=== PATIENT | male | born 1970 | race Caucasian/White ===

== ENCOUNTER 2019-06-15 07:20 | Day surgery (SDC) | payer OTHER, SELFPAY ==
[2019-05-19 14:52] VITALS: BMI 25.0
[2019-06-15 08:14] VITALS: BP 141/92; PULSE 70; RESP 16; TEMP 36.8; O2SAT 100; BMI 25.5
[2019-06-15] MEDS: Lactated Ringers 1,000 ML 100 ML IV ×2 (08:32→11:15)
[2019-06-15] MEDS: Cefazolin 2 GM in 0.9% Normal Saline 100 ML IV (10:05)
--- NOTE | 2019-06-15 10:37 | PCM.OPRPT ---
Report of Operation Date of Procedure: 06/15/19 Description of Surgical Findings:: Preoperative diagnosis; right carpal tunnel syndrome and cubital tunnel Postoperative diagnosis; same Procedure: 1. Right open carpal tunnel release 2. Right ulnar nerve decompression Anesthesia: Local with MAC Tourniquet time; 20 minutes 250 mm Hg Complications: None Indication for procedure; This is a 48-year-old male with long-standing symptoms consistent with carpal tunnel and cubital tunnel syndrome the patient did have electrodiagnostic evidence of this and has failed conservative treatment. Risks benefits and alternatives were reviewed including risks of bleeding infection nerve artery tissue damage need for further surgery and continued pain and symptoms, hypersensitivity to scar and Pillar pain. Procedure; The patient was met in the preoperative holding area the operative extremity was identified by both patient and physician and was marked the patient was met by anesthesia and brought back to the operating room and transferred to the operating table in the supine position. Aanesthesia was started. A well-padded tourniquet was placed on the operative upper extremity. The patient was prepped and draped in the usual sterile fashion. A timeout was called to ensure the proper patient procedure and extremity were being contemplated. An Esmarch was used to exsanguinate the extremity. The tourniquet was inflated to 250 mmHg. First we turned our attention to the elbow made a curvilinear skin incision over the path of the ulnar nerve dissection was carried down as full-thickness flaps electrocautery was used until the fascia over the ulnar nerve was reached the nerve was then identified proximally and Vesseloops were placed around it and careful dissection to free it from the surrounding soft tissue was performed until its distal extent splitting of the 2 heads of the FCU nerve was mobilized and proximally up to the medial intermuscular septum and there was no further constrictions proximally. The release was carried out on the dorsal side of the tunnel and when the elbow was brought through range of motion there was no subluxation appreciated the wound was thoroughly irrigated and closed with 3-0 Vicryl subcutaneous stitches and 3-0 Monocryl running stitch. Steri-Strips and Xeroform Second procedure A midline incision was made with a 15 blade scalpel between the thenar and hypothenar eminence. This was carried down through the skin and subcutaneous tissue. Abram retractors were then used, a deep blade scalpel was used to make a deep incision in the palmar aponeurosis. The abram retractors were then placed deep to this and the transverse carpal ligament was identified a perforation was made with a scalpel and a Littler scissors were used to complete the release of the transverse carpal ligament distally under direct visualization with the tips facing ulnarly until the perivascular fat was reached. Then turning our attention proximally using a tension slide technique the proximal extent of the transverse carpal ligament was released . There was noted to be [hourglass configuration to the median nerve and hypertrophy of the transverse carpal ligament without other findings]. The wound was thoroughly irrigated and was closed with 4-0 prolene vertical mattress stitches. Dressing was applied in the form of xeroform 4 x 4, web roll and an juana wrap. Tourniquet was let down there is no intraoperative complications patient tolerated the procedure well and was transferred to the PACU. All counts were correct.
--- NOTE | 2019-06-15 10:47 | DCINST_ITS ---
Discharge Diet: No Restrictions Call your doctor if you observe: Fever of 101 or Higher, Shortness of breath, Chest pain Additional Instructions: Ice and elevate operative extremity next 72 hours. encourage finger wrist and elbow range of motion. Keep dressing on clean and dry for 48 hours then may remove and allow warm soapy water to rinse over incision but do not submerge until sutures are out. Then apply bandaid over incision and change daily. encourage finger range of motion. Not lift more than 2 pound. Allergies/Adverse Reactions: Allergies Penicillins Allergy (Verified 06/15/19 08:12) Unknown Medications to take at Discharge Hydrocodone Bitart/Apap 5-325 [Speedwell 5MG-325MG] 1 - 2 tab PO Q4H PRN PRN 5 Days #40 tab 06/15/19 The following prescriptions were given: Hydrocodone Bitart/Apap 5-325 [Speedwell 5MG-325MG] 1 - 2 tab PO Q4H PRN PRN 5 Days #40 tab PRN Reason: Pain Transmission Status: Received by [facility] Primary Care Physician: Care Physician,No Primary [Primary Care Provider] - Test Results: Test results from this visit will be discussed in further detail at your follow- up appointment, if applicable.
--- NOTE | 2019-06-15 10:49 | HP.PCM_ITS ---
History and Physical Date of Admission: 06/15/19 Intake Vital Signs 05/19/19 Height 5 ft 6 in 05/19/19 Weight: 155 lb 05/19/19 Body Mass Index (BMI) 25.0 Intake Visit Reasons: Bilat Wrist Accompanied by: self Is patient in pain?: Yes Pain scale (1-10): 8 Allergies Penicillins Allergy (Verified 05/19/19 14:53) Unknown Medications NK 05/19/19 [History Confirmed 05/19/19] HPI Bilat Wrist: Chief Complaint: Bilateral upper extremity numbness tingling right worse than left Details: Parts of this documentation were recorded by a scribe, this documentation accurately reflects the service provided and the decisions made by me, Jonathon Pizarro, 05/19/19 0759. MARILYN RUELAS is a 48 year old M new patient here today for BL wrists. Referral from [employer] for positive EMG findings. Has been working at [employer] for about 20 years. Patient states he has been working 7 days a week for 2 years and he started going to [employer] about in June and they put him on 40hr working restriction. Has done PT for his BL arms. States his right arm has numbness and tingling from all his fingers to the elbow. Patient states he has a soreness over his left arm from his hand to his elbow. States he has a tingling sensation then he starts feeling his muscle tense up. States he's had this pain of May 2018. Has tried night splinting fo BL wrists for about 3 months but no longer wears them. Denies any injections of the wrists or elbows. ROS Const Reports system reviewed and no additional complaints, except as docu Eyes Reports system reviewed and no additional complaints, except as docu ENT Reports system reviewed and no additional complaints, except as docu Card Reports system reviewed and no additional complaints, except as docu Resp Reports system reviewed and no additional complaints, except as docu GI Reports system reviewed and no additional complaints, except as docu Reports system reviewed and no additional complaints, except as docu Musc Reports system reviewed and no additional complaints, except as docu, Reports as per HPI Skin/Breast Reports system reviewed and no additional complaints, except as docu Neuro Yes system reviewed and no additional complaints, except as docu Psych Reports system reviewed and no additional complaints, except as docu Endo Reports system reviewed and no additional complaints, except as docu Valentin/Lymph Reports system reviewed and no additional complaints, except as docu Aller/Immun Reports system reviewed and no additional complaints, except as docu Ortho Exam Right Wrist/Hand Right Wrist: Yes Durken's Test, Tinel's and Phalen's WRIST: no atrophy noted. Left Wrist/Hand Left Wrist: No Durken's Test, No Tinel's or No Phalen's Supplemental Info 05/11/2019 :EMG showed bilateral Upper Extremity Moderate Carpal Tunl. and Cubital Tunl. Assessment & Plan Problems 1. Carpal tunnel syndrome, bilateral upper limbs G56.03 2. Cubital tunnel syndrome, bilateral G56.23 Plan Reviewed EMG results. Since patient has trialed bracing, PT and OT NSAID and has had a positive EMG study of moderate severity. He is educated that the next steps for this would be a CTR and an open ulnar nerve decompression and possible ulnar nerve transposition. Patient educated that we can preform one side then will preform surgery of the other . Patient educated on the recovery period. Reviewed the pre-operative plans with the patient. Risks and benefits of the procedure were fully explained, including but not limited to infection, neurovascular injury, continued pain, arthritis, stiffness, need for further surgery, re-injury, DVT, PE, general risks of anesthesia, and loss of limb or life. The patient understands all the risks and does wish to proceed with written consent. Since patient is WC we will request C-9 for surgery. Follow up 2 weeks post op or sooner if pain, swelling, numbness or associated symptoms, or concerns develop. All questions answered. Patient in agreement of plan. Coding Level of Care Code Off vis,new,level 3 Diagnoses Carpal tunnel syndrome, bilateral upper limbs G56.03 Cubital tunnel syndrome, bilateral G56.23 I have re-examined the patient. There are no clinical changes since date of exam
[2019-06-15 11:18] VITALS: BP 126/88; BP 141/92; PULSE 77; RESP 18; TEMP 36.2; O2SAT 96
[2019-06-15 11:30] VITALS: BP 119/80; BP 141/92; PULSE 57; RESP 16; O2SAT 98
[2019-06-15 11:45] VITALS: BP 118/73; BP 141/92; PULSE 55; RESP 18; O2SAT 100
[2019-06-15 11:54] VITALS: BP 121/84; BP 141/92; PULSE 57; RESP 18; TEMP 36.4; O2SAT 100
[2019-06-15 12:05] VITALS: BP 141/92
== END 2019-06-15 13:07 | disposition home or self-care (01) ==
LOC: SDC 07:22 → AC 07:23
PROVIDERS: Referring Provider Orthopaedic Surgery; Visit Provider Orthopaedic Surgery
PROC: (CPT 64721; principal; 2019-06-15 08:45)
DX: G56.03 Carpal tunnel syndrome, bilateral upper limbs (principal); G56.23 Lesion of ulnar nerve, bilateral upper limbs; F17.200 Nicotine dependence, unspecified, uncomplicated; Z88.0 Allergy status to penicillin
CPT/HCPCS: 01810; 64718; 64721; J7120

== ENCOUNTER 2019-07-20 07:59 | Day surgery (SDC) | payer OTHER, SELFPAY ==
[2019-06-30 09:43] VITALS: BMI 25.5
--- NOTE | 2019-07-20 07:23 | HP.PCM_ITS ---
History and Physical Date of Admission: 07/20/19 Intake Vital Signs 06/30/19 Body Mass Index (BMI) 25.5 Intake Visit Reasons: R. ELBOW/WRIST Allergies Penicillins Allergy (Verified 06/15/19 08:12) Unknown [facility] Social History (Updated 06/30/19 @ 12:48 by Jonathon Pizarro DO) Smoking Status: Current every day smoker HPI R. ELBOW/WRIST: Chief Complaint: 1. po right upper extremity 2. numbness left upper extremity Details: Parts of this documentation were recorded by a scribe, this documentation accurately reflects the service provided and the decisions made by me, Jonathon Pizarro DO 06/30/19 0749. MARILYN RUELAS is a 48 year old M here today for 2 weeks post Right open carpal tunnel release and Right ulnar nerve decompression. Patient states he is still having some remaining numbness and tingling but it is much improved then pre- operatively . Patient is off work for the right and wishes to disscuss having his left CTR and ulnar nerve completed while he is off. he has continued symptoms and did have an EMG showing moderate carpal tunnel and cubital tunnel on the left. Ortho Exam Right Wrist/Hand Date of Surgery: 06/15/19 Skin/Wound: Yes suture/hien removed (5 sutures removed without concern), No Swelling, No Ecchymosis, Yes capillary refill normal Right Wrist: Yes ROM-Extension 0-60, ROM-Flexion 0-80, ROM-Pronation 0-80 and ROM-Supination 0-90 Sensation: Radial: I, Ulnar: I, Median: I WRIST: no s/sx of infection Left Wrist/Hand Skin/Wound: No Swelling, No Ecchymosis Left Wrist: No Durken's Test, No Tinel's or No Phalen's Sensation: Radial: I, Ulnar: I, Median: I Right Elbow Date of Injury: 06/15/19 Skin/Wound: Yes healing, No suture/hien removed, No eccymosis, No erythema, No Swelling ROM: Yes Flexion 0-140, Extension 0, Supination 0-90 and Pronation 0-80 Sensation: Radial: I, Ulnar: I, Median: I ELBOW: no s/sx of infections Left Elbow Skin/Wound: No erythema, No Swelling Test: No Ulnar Nerve Subluxation Sensation: Radial: I, Ulnar: I, Median: I ELBOW: full range of motion no effusion or sign of infection positive provactive maneuvers at wrist and elbow. Right Foot/Ankle Skin/Wound: Yes suture/hien removed (5 sutures removed without concern) Assessment & Plan Problems 1. Carpal tunnel syndrome of left wrist G56.02 2. Orthopedic aftercare Z47.89 3. Carpal tunnel syndrome, bilateral G56.03 4. Cubital tunnel syndrome, bilateral G56.23 Plan Patient educated that it may take 6 weeks or longer for his numbness to completely subside because the nerve was compressed for so long. Patient educated to continue with 2 lbs weight lifting restriction of the right hand for an additional 2 weeks. 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 discussed left open CTR along with ulnar nerve decompression vs transposition. Reviewed the pre-operative plans with the patient. Risks and benefits of the procedure were fully explained, including but not limited to infection, neurovascular injury, continued pain, arthritis, stiffness, need for further surgery, re-injury, DVT, PE, general risks of anesthesia, and loss of limb or life continued symptoms. The patient understands all the risks and does wish to proceed with written con sent. Patient educated that we will need to request the surgical code from [facility]. Surgery date set for Jul 20 2019. Follow up 2 weeks post op or sooner if pain, swelling, numbness or associated symptoms, or concerns develop. All questions answered. Patient in agreement of plan. Coding Level of Care Code Off vis,est,level 3 Diagnoses Carpal tunnel syndrome of left wrist G56.02 Orthopedic aftercare Z47.89 Carpal tunnel syndrome, bilateral G56.03 Cubital tunnel syndrome, bilateral G56.23 I have re-examined the patient. There are no clinical changes since date of exam
[2019-07-20 08:14] VITALS: BP 141/84; PULSE 73; RESP 16; TEMP 36.3; O2SAT 100; BMI 25.8
[2019-07-20] MEDS: Lactated Ringers 1,000 ML 100 ML IV (08:29)
[2019-07-20] MEDS: Cefazolin 2 GM in 0.9% Normal Saline 100 ML IV (09:52)
--- NOTE | 2019-07-20 10:54 | PCM.OPRPT ---
Report of Operation Date of Procedure: 07/20/19 Description of Surgical Findings:: Preoperative diagnosis; left carpal tunnel and left cubital tunnel Postoperative diagnosis; same Procedure: 1. Left open carpal tunnel release 2. Left ulnar nerve decompression Anesthesia: Local with MAC Tourniquet time; 20 minutes 250 mm Hg Complications: None Indication for procedure; This is a 48-year-old male with long-standing symptoms consistent with carpal tunnel and cubital tunnel syndrome the patient did have electrodiagnostic evidence of this and has failed conservative treatment. He did have his right upper extremity performed by me with good results to have his left on as well, risks benefits and alternatives were reviewed including risks of bleeding infection nerve artery tissue damage need for further surgery and continued pain and symptoms, hypersensitivity to scar and Pillar pain. Procedure: cubital tunnel : the patient was met in the preoperative holding area the operative extremity was identified by both patient and physician and was marked the patient was met by anesthesia and brought back to the operating room and transferred to the operating table in the supine position. Aanesthesia was started. A well-padded tourniquet was placed on the operative upper extremity. The patient was prepped and draped in the usual sterile fashion. A timeout was called to ensure the proper patient procedure and extremity were being contemplated. An Esmarch was used to exsanguinate the extremity. The tourniquet was inflated to 250 mmHg. First we turned our attention to the elbow made a curvilinear skin incision over the path of the ulnar nerve dissection was carried down as full-thickness flaps electrocautery was used until the fascia over the ulnar nerve was reached the nerve was then identified proximally and Vesseloops were placed around it and careful dissection to free it from the surrounding soft tissue was performed until its distal extent splitting of the 2 heads of the FCU nerve was mobilized and proximally up to the medial intermuscular septum and there was no further constrictions proximally. The release was carried out on the dorsal side of the tunnel and when the elbow was brought through range of motion there was no subluxation appreciated the wound was thoroughly irrigated and closed with 3-0 Vicryl subcutaneous stitches and 3-0 Prolene vertical mattress and interrupted stitches. Steri-Strips and Xeroform. Carpal tunnel :A midline incision was made with a 15 blade scalpel between the thenar and hypothenar eminence. This was carried down through the skin and subcutaneous tissue. Abram retractors were then used, a deep blade scalpel was used to make a deep incision in the palmar aponeurosis. The abram retractors were then placed deep to this and the transverse carpal ligament was identified a perforation was made with a scalpel and a Littler scissors were used to complete the release of the transverse carpal ligament distally under direct visualization with the tips facing ulnarly until the perivascular fat was reached. Then turning our attention proximally using a tension slide technique the proximal extent of the transverse carpal ligament was released . There was noted to be hourglass configuration to the median nerve and hypertrophy of the transverse carpal ligament without other findings. The wound was thoroughly irrigated and was closed with 4-0 prolene vertical mattress stitches. Dressing was applied in the form of xeroform 4 x 4, web roll and an juana wrap from the hand to the axilla.. Tourniquet was let down there is no intraoperative complications patient tolerated the procedure well and was transferred to the PACU. All counts were correct.
[2019-07-20 10:59] VITALS: BP 112/79; BP 141/84; PULSE 80; RESP 16; TEMP 36.5; O2SAT 94
--- NOTE | 2019-07-20 11:00 | DCINST_ITS ---
Discharge Diet: No Restrictions Call your doctor if you observe: Fever of 101 or Higher, Shortness of breath, Chest pain Additional Instructions: Dressing on clean and dry next 72 hours then may remove and begin showering daily do not submerge until stitches are removed in the office. Follow-up in office 2 weeks do not lift push or pull anything heavier than 1/2 pound with operative extremity encourage finger range of motion. With any concern Allergies/Adverse Reactions: Allergies Penicillins Allergy (Verified 07/20/19 08:10) Unknown Medications to take at Discharge NK 07/16/19 Primary Care Physician: Care Physician,No Primary [Primary Care Provider] - Test Results: Test results from this visit will be discussed in further detail at your follow- up appointment, if applicable.
[2019-07-20 11:05] VITALS: BP 131/84; BP 141/84; PULSE 84; RESP 16; O2SAT 96
[2019-07-20 11:15] VITALS: BP 106/93; BP 141/84; PULSE 84; RESP 16; O2SAT 98
[2019-07-20 11:28] VITALS: BP 120/89; BP 141/84; PULSE 87; RESP 16; TEMP 36.3; O2SAT 100
[2019-07-20 11:45] VITALS: BP 141/84
== END 2019-07-20 12:12 | disposition home or self-care (01) ==
LOC: SDC 08:00 → AC 08:01
PROVIDERS: Referring Provider Orthopaedic Surgery; Visit Provider Orthopaedic Surgery
PROC: (CPT 64718; principal; 2019-07-20 09:15)
DX: G56.02 Carpal tunnel syndrome, left upper limb (principal); G56.22 Lesion of ulnar nerve, left upper limb; F17.200 Nicotine dependence, unspecified, uncomplicated
CPT/HCPCS: 01710; 64718; 64721; J7120; J2405